=== PATIENT | male | born 1990 | race Caucasian/White ===

== ENCOUNTER 2018-08-05 20:23 | Emergency (ER) | payer BC ==
--- NOTE | 2018-08-05 21:46 | EDPHYS ---
Physician Documentation [facility] Name: Shon Su Age: 27 yrs Sex: Male : 1990 Arrival Date: 08/05/2018 Time: 20:24 Bed 9 Private MD: Malissa Coreas H ED Physician Kvng Croft HPI: 08/05 21:42 This 27 yrs old Male presents to ER via Ambulatory with complaints of Cat snw Bite. 21:42 The patient was bitten on the palmar aspect of distal phalanx of left ring finger, by a snw cat, while approaching the animal, at work. Onset: The symptoms/episode began/occurred suddenly, at 16:00. Animal information: Patient/Caregiver unable to provide information related to the animal. The animal was reported to appear healthy. is unknown, The animal is unknown and not captured. Animal control has been notified. Secondary to the bite the patient reports x 2. Associated signs and symptoms: The patient has no apparent associated signs or symptoms. Severity of symptoms: At their worst the symptoms were mild. The patient has not experienced similar symptoms in the past. The patient has not recently seen a physician. Historical: - Allergies: 20:50 No Known Allergies; aj - Home Meds: 20:50 Vyvanse 70 mg oral cap 1 cap once daily [Active]; aj - PMHx: 20:50 ADD/ADHD; aj - PSHx: 20:50 None; aj - Immunization history:: Last tetanus immunization: < 10 years ago. - Social history:: Smoking status: Patient/guardian denies using tobacco. - Ebola Screening: : Patient negative for fever greater than or equal to 101.5 degrees Fahrenheit, and additional compatible Ebola Virus Disease symptoms Patient denies exposure to infectious person Patient denies travel to an Ebola-affected area in the 21 days before illness onset No symptoms or risks identified at this time. ROS: 21:42 Constitutional: Negative for fever, chills, and weight loss, Eyes: Negative for injury, snw pain, redness, and discharge, ENT: Negative for injury, pain, and discharge, Neck: Negative for injury, pain, and swelling, Cardiovascular: Negative for chest pain, palpitations, and edema, Respiratory: Negative for shortness of breath, cough, wheezing, and pleuritic chest pain, Abdomen/GI: Negative for abdominal pain, nausea, vomiting, diarrhea, and constipation, Back: Negative for injury and pain, : Negative for injury, bleeding, discharge, and swelling, MS/Extremity: Negative for injury and deformity, Neuro: Negative for headache, weakness, numbness, tingling, and seizure, Psych: Negative for depression, anxiety, suicide ideation, homicidal ideation, and hallucinations. 21:42 Skin: Positive for cat bite to left ring finger tip. Exam: 21:41 Constitutional: This is a well developed, well nourished patient who is awake, alert, snw and in no acute distress. Head/Face: Normocephalic, atraumatic. Eyes: Pupils equal round and reactive to light, extra-ocular motions intact. Lids and lashes normal. Conjunctiva and sclera are non-icteric and not injected. Cornea within normal limits. Periorbital areas with no swelling, redness, or edema. ENT: Nares patent. No nasal discharge, no septal abnormalities noted. Tympanic membranes are normal and external auditory canals are clear. Oropharynx with no redness, swelling, or masses, exudates, or evidence of obstruction, uvula midline. Mucous membranes moist. Neck: Trachea midline, no thyromegaly or masses palpated, and no cervical lymphadenopathy. Supple, full range of motion without nuchal rigidity, or vertebral point tenderness. No Meningismus. Chest/axilla: Normal chest wall appearance and motion. Nontender with no deformity. No lesions are appreciated. Cardiovascular: Regular rate and rhythm with a normal S1 and S2. No gallops, murmurs, or rubs. Normal PMI, no JVD. No pulse deficits. Respiratory: Lungs have equal breath sounds bilaterally, clear to auscultation and percussion. No rales, rhonchi or wheezes noted. No increased work of breathing, no retractions or nasal flaring. Abdomen/GI: Soft, non-tender, with normal bowel sounds. No distension or tympany. No guarding or rebound. No evidence of tenderness throughout. Back: No spinal tenderness. No costovertebral tenderness. Full range of motion. MS/ Extremity: Pulses equal, no cyanosis. Neurovascular intact. Full, normal range of motion. Neuro: Awake and alert, GCS 15, oriented to person, place, time, and situation. Cranial nerves II-XII grossly intact. Motor strength 5/5 in all extremities. Sensory grossly intact. Cerebellar exam normal. Normal gait. Psych: Awake, alert, with orientation to person, place and time. Behavior, mood, and affect are within normal limits. 21:41 Skin: Appearance: normal except for affected area, injury, bite(s), superficial, of the palmar aspect of distal phalanx of left ring finger. Vital Signs: 20:50 BP 135 / 84; Pulse 86; Resp 17; Temp 98.4; Pulse Ox 97% on R/A; Weight 60.78 kg; Height aj 5 ft. 10 in. (177.80 cm) (R); 20:50 Body Mass Index 19.23 (60.78 kg, 177.80 cm) aj MDM: 21:13 Patient medically screened. snw 21:46 Data reviewed: vital signs, nurses notes. Data interpreted: Pulse oximetry: on room air snw is 97 %. Interpretation: normal. Counseling: I had a detailed discussion with the patient and/or guardian regarding: the historical points, exam findings, and any diagnostic results supporting the discharge/admit diagnosis, the presence of at least one elevated blood pressure reading (>120/80) during this emergency department visit, the need for outpatient follow up, to return to the emergency department if symptoms worsen or persist or if there are any questions or concerns that arise at home. Special discussion: Based on the history and exam findings, there is no indication for further emergent testing or inpatient evaluation. I discussed with the patient/guardian the need to see the primary care provider for further evaluation of the symptoms. animal control. Administered Medications: 22:10 Drug: Augmentin 875 mg Route: PO; 22:25 Follow up: Response: No adverse reaction; No change in condition 22:10 Drug: Tetanus-Diphtheria Toxoid Adult 0.5 ml {Change Control Analyst: [employer]. Exp: 09/25/2020. Lot #: [id number]. } Route: IM; Site: right deltoid; 22:25 Follow up: Response: No adverse reaction; No change in condition 22:10 Drug: Hibiclens 4 % 1 application Route: Topical; Site: wound; 22:25 Follow up: Response: No adverse reaction; No change in condition Disposition: 08/06 04:09 Co-signature as Attending Physician, Kvng Croft MD. gs Disposition: 08/05/18 21:45 Discharged to Home. Impression: Bitten by cat. - Condition is Stable. - Discharge Instructions: VIS, Tetanus, Diphtheria (Td) - CDC, Animal Bite. - Prescriptions for Augmentin 875- 125 mg Oral Tablet - take 1 tablet by ORAL route every 12 hours for 10 days; 20 tablet. - Medication Reconciliation Form, Thank You Letter, Antibiotic Education, Prescription Opioid Use form. - Follow up: Malissa Coreas DO; When: 5 - 6 days; Reason: Recheck today's complaints, Continuance of care, Re-evaluation by your physician. Follow up: Emergency Department; When: As needed; Reason: Worsening of condition. Signatures: Marquita Damon, RN Jenny Boone, SPORTS STATISTICIAN-C SPORTS STATISTICIAN-Csnw Deborah Bowers RN RN fc Starr, Gregory, MD MD Corrections: (The following items were deleted from the chart) 08/05 22:26 21:45 08/05/2018 21:45 Discharged to Home. Impression: Bitten by cat. Condition is fc Stable. Forms are Medication Reconciliation Form, Thank You Letter, Antibiotic Education, Prescription Opioid Use. Follow up: Malissa Coreas; When: 5 - 6 days; Reason: Recheck today's complaints, Continuance of care, Re-evaluation by your physician. Follow up: Emergency Department; When: As needed; Reason: Worsening of condition. snw
--- NOTE | 2018-08-05 21:46 | ER ---
Nurse's Notes [facility] Name: Shon Su Age: 27 yrs Sex: Male : 1990 Arrival Date: 08/05/2018 Time: 20:24 Bed 9 Private MD: Malissa Coreas H Diagnosis: Bitten by cat Presentation: 08/05 20:49 Presenting complaint: Patient states: Bit by stray cat on left 4 th digit today [employer]. aj Transition of care: patient was not received from another setting of care. Onset of symptoms was August 05, 2018. Risk Assessment: Do you want to hurt yourself or someone else? Patient reports no desire to harm self or others. Initial Sepsis Screen: Does the patient meet any 2 criteria? No. Patient's initial sepsis screen is negative. Does the patient have a suspected source of infection? No. Patient's initial sepsis screen is negative. Care prior to arrival: None. 20:49 Method Of Arrival: Ambulatory aj 20:49 Acuity: SUSIE 5 aj Triage Assessment: 20:50 Bite description: bite sustained to palmar aspect of distal phalanx of left ring finger aj by a cat, animal information: vaccination(s) is unknown. General: Appears in no apparent distress. comfortable, Behavior is calm, cooperative, appropriate for age. Pain: Complains of pain in palmar aspect of distal phalanx of left ring finger. Neuro: Level of Consciousness is awake, alert, obeys commands, Oriented to person, place, time, situation, Appropriate for age. Respiratory: Airway is patent Respiratory effort is even, unlabored, Respiratory pattern is regular, symmetrical. Derm: Skin is intact, is healthy with good turgor, Skin is pink, warm \T\ dry. normal. Injury Description: Bite sustained to palmar aspect of distal phalanx of left ring finger caused by a cat, is superficial. Historical: - Allergies: 20:50 No Known Allergies; aj - Home Meds: 20:50 Vyvanse 70 mg oral cap 1 cap once daily [Active]; aj - PMHx: 20:50 ADD/ADHD; aj - PSHx: 20:50 None; aj - Immunization history:: Last tetanus immunization: < 10 years ago. - Social history:: Smoking status: Patient/guardian denies using tobacco. - Ebola Screening: : Patient negative for fever greater than or equal to 101.5 degrees Fahrenheit, and additional compatible Ebola Virus Disease symptoms Patient denies exposure to infectious person Patient denies travel to an Ebola-affected area in the 21 days before illness onset No symptoms or risks identified at this time. Screenin:07 Abuse screen: Denies threats or abuse. Nutritional screening: No deficits noted. fc Tuberculosis screening: No symptoms or risk factors identified. Fall Risk None identified. Assessment: 21:07 General: Appears comfortable, slender, Behavior is calm, cooperative, appropriate for fc age. Pain: Complains of pain in palmar aspect of distal phalanx of left ring finger Quality of pain is described as burning, Pain began 2 hours ago. Is continuous, Aggravated by increased activity, repositioning. Neuro: Level of Consciousness is awake, alert, obeys commands, Oriented to person, place, time, situation, Appropriate for age. Cardiovascular: No deficits noted. Respiratory: No deficits noted. GI: No deficits noted. : No deficits noted. EENT: No deficits noted. Derm: Skin is pink, warm \T\ dry. two small puncture wounds to pad of left 4th finger from cat bite. Musculoskeletal: Circulation, motion, and sensation intact. Capillary refill < 3 seconds, Range of motion: intact in all extremities. 21:55 Reassessment: No changes from previously documented assessment. Patient and/or family fc updated on plan of care and expected duration. Pain level reassessed. Patient is alert, oriented x 3, equal unlabored respirations, skin warm/dry/pink. Shruti with [place] [employer] notified of bite [phone]. She will speak to her boss and return call with further instructions. 22:05 Reassessment: Police dept called back to state that if pt wanted to file police report fc that he could call them that they would not be sending naval police coxswain to this facility. Vital Signs: 20:50 BP 135 / 84; Pulse 86; Resp 17; Temp 98.4; Pulse Ox 97% on R/A; Weight 60.78 kg; Height aj 5 ft. 10 in. (177.80 cm) (R); 20:50 Body Mass Index 19.23 (60.78 kg, 177.80 cm) aj ED Course: 20:24 Patient arrived in ED. am2 20:24 Coreas, Heidy-Raheem, DO is Private Physician. am2 20:49 Triage completed. aj 20:50 Arm band placed on left wrist. Patient placed in waiting room, Patient notified of wait aj time. 21:04 Jenny Betts FNP-C is [facility]. snw 21:04 Kvng Croft MD is Attending Physician. snw 21:07 Patient has correct armband on for positive identification. Bed in low position. Call fc light in reach. 21:44 Malissa Coreas DO is Referral Physician. snw 22:19 No provider procedures requiring assistance completed. Patient did not have IV access fc during this emergency room visit. 22:19 Wound care: to puncture located on palmar aspect of distal phalanx of left ring finger fc was cleaned with Hibiclens, dressed with 4X4s, band aid, Patient tolerated well. Administered Medications: 22:10 Drug: Augmentin 875 mg Route: PO; 22:25 Follow up: Response: No adverse reaction; No change in condition 22:10 Drug: Tetanus-Diphtheria Toxoid Adult 0.5 ml {Gullet Slitter: [employer]. Exp: 09/25/2020. Lot #: [id number]. } Route: IM; Site: right deltoid; 22:25 Follow up: Response: No adverse reaction; No change in condition 22:10 Drug: Hibiclens 4 % 1 application Route: Topical; Site: wound; fc 22:25 Follow up: Response: No adverse reaction; No change in condition fc Outcome: 21:45 Discharge ordered by MD. snw 22:26 Discharged to home ambulatory, with family. 22:26 Condition: good 22:26 Discharge instructions given to patient, family, Instructed on discharge instructions, follow up and referral plans. medication usage, wound care, Demonstrated understanding of instructions, follow-up care, medications, wound care, Prescriptions given X 1. 22:26 Patient left the ED. fc Signatures: Marquita Damon, RN RN Jenny Henderson FNP-C QUAD STAYER-Csnw Deborah Bowers RN RN fc Moreno, Amanda am2
[2018-08-05] MEDS ORDERED: AMOX/K CLAV 875 MG TAB ONE (22:12)
[2018-08-05] MEDS ORDERED: TETANUS & DIPHTHERIA TOX,ADULT 0.5 ML VIAL ONE (22:13)
== END 2018-08-05 22:26 | disposition home or self-care (01) ==
LOC: ER 20:23
DX: S60.475A Other superficial bite of left ring finger, initial encounter (principal); W55.01XA Bitten by cat, initial encounter; Y93.89 Activity, other specified; Y92.89 Other specified places as the place of occurrence of the external cause; Y99.8 Other external cause status; Z23 Encounter for immunization; F90.9 Attention-deficit hyperactivity disorder, unspecified type
CPT/HCPCS: 90714; 99283